=== PATIENT | female | born 2000 | race Caucasian/White ===

== ENCOUNTER 2020-05-04 06:41 | Emergency (ER) | payer BC ==
[~2020-05-04] VITALS: Ht 160 cm; Wt 127.0 kg
[2020-05-04 07:09] LABS: BASOPHILS % 0.3 % (0.0-1.0); EOSINOPHILS # (AUTO) 0.1 (0.0-0.4); EOSINOPHILS % 0.8 % (0.0-6.0); HEMATOCRIT 39.6 % (34.2-44.1); HEMOGLOBIN 12.7 g/dL (12.0-16.0); LYMPHOCYTES % 34.3 % (18.0-39.1); MEAN CORPUSCULAR HEMOGLOBIN 27.1 pg (28-32); MEAN CORPUSCULAR HGB CONC 32.1 g/dL (31-35); MEAN CORPUSCULAR VOLUME 84.4 fL (81-99); MONOCYTES # (AUTO) 0.6 (0.2-0.8); MONOCYTES % 4.8 % (4.4-11.3); NEUTROPHILS % 59.5 % (38.7-80.0); PLATELET COUNT 305 x10e3/uL (140-360); RED BLOOD COUNT 4.69 x10e6/uL (3.6-5.1)
[2020-05-04 07:16] LABS: CLARITY,URINE CLEAR (CLEAR); COLOR,URINE YELLOW (YELLOW)
--- NOTE | 2020-05-04 07:16 | Emergency Department Note ---
History of Present Illnes History of Present Illness Chief Complaint: Abdominal Complaints History of Present Illness This is a 19 year old female PATIENT IN FROM HOME WITH COMPLAINTS OF LOWER ABDOMINAL PAIN X 4 DAYS; STATES SHE INITIALLY HAD BURNING WITH URINATION, BUT NOW JUST HAS URINARY FREQUENCY. PATIENT ALERT AND ORIENTED, RESP EVEN AND NONLABORED, APPEARS IN NO DISTRESS, RATES PAIN 8/10. Historian: Patient Arrival Mode: Car Director Utilization Management Required: No Onset (how long ago): day(s) (4) Location: LOWER ABD Quality: CRAMPY PAIN Radiation: Reports non-radiation, Reports other (ALSO C/O LOWER ABD PAIN) Severity: mild Onset quality: gradual Timing of current episode: intermittent Progression: worsening Chronicity: new Context: Denies recent illness Relieving factors: none Exacerbating factors: none Associated symptoms: Reports denies other symptoms Past Medical/Family History Physician Review I have reviewed the patient's past medical and family history. Any updates have been documented here. Past Medical History Recent Fever: No Clinical Suspicion of Infectio: No New/Unexplained Change in Ment: No Past Medical History: Asthma Past Surgical History: None Social History Smoking Cessation: Never Smoker Counseling Performed: No Alcohol Use: Occasional Any Illegal Drug Use: No TB Exposure/Symptoms: No Physically hurt or threatened: No Family History Family history of heart diseas: No Other Any Pre-Existing Lines (PICC,: No Review of Systems Review of Systems Constitutional: Reports no symptoms EENTM: Reports no symptoms Cardiovascular: Reports no symptoms Respiratory: Reports no symptoms Gastrointestinal: Reports as per HPI, Reports abdominal pain Genitourinary: Reports no symptoms Musculoskeletal: Reports no symptoms Integumentary: Reports no symptoms Neurological: Reports no symptoms Psychological: Reports no symptoms Endocrine: Reports no symptoms Hematological/Lymphatic: Reports no symptoms Physical Exam Related Data Allergies: Coded Allergies: No Known Allergies (Unverified , 05/04/20) Triage Vital Signs Vital Signs Date Time Temp Pulse Resp B/P (MAP) Pulse Ox O2 Delivery O2 Flow Rate FiO2 05/04/20 06:45 97.8 96 20 145/83 100 Room Air Vital signs reviewed: Yes Physical Exam CONSTITUTIONAL Constitutional: Present well-developed, Present well-nourished, Present obese HENT HENT: Present normocephalic, Present atraumatic, Present oropharynx clear/moist, Present nose normal HENT L/R: Present left ext ear normal, Present right ext ear normal EYES Eyes: Reports PERRL, Reports conjunctivae normal NECK Neck: Present ROM normal PULMONARY Pulmonary: Present effort normal, Present breath sounds normal CARDIOVASCULAR Cardiovascular: Present regular rhythm, Present heart sounds normal, Present capillary refill normal, Present normal rate GASTROINTESTINAL Abdominal: Present soft, Present tender (MILD SUPRAPUBIC/LLQ/RLQ TENDERNESS, NO R/G); Absent guarding, Absent rebound, Absent left CVA tenderness, Absent right CVA tenderness GENITOURINARY Genitourinary: Present exam deferred SKIN Skin: Present warm, Present dry MUSCULOSKELETAL Musculoskeletal: Present ROM normal NEUROLOGICAL Neurological: Present alert, Present oriented x 3, Present no gross motor or sensory deficits PSYCHOLOGICAL Psychological: Present mood/affect normal, Present judgement normal Results Laboratory Laboratory Laboratory Tests Test 05/04/20 06:52 White Blood Count 11.77 x10e3/uL (4.8-10.8) Red Blood Count 4.69 x10e6/uL (3.6-5.1) Hemoglobin 12.7 g/dL (12.0-16.0) Hematocrit 39.6 % (34.2-44.1) Mean Corpuscular Volume 84.4 fL (81-99) Mean Corpuscular Hemoglobin 27.1 pg (28-32) Mean Corpuscular Hemoglobin Concent 32.1 g/dL (31-35) Red Cell Distribution Width 14.0 % (11.7-14.4) Platelet Count 305 x10e3/uL (140-360) Neutrophils (%) (Auto) 59.5 % (38.7-80.0) Lymphocytes (%) (Auto) 34.3 % (18.0-39.1) Monocytes (%) (Auto) 4.8 % (4.4-11.3) Eosinophils (%) (Auto) 0.8 % (0.0-6.0) Basophils (%) (Auto) 0.3 % (0.0-1.0) Neutrophils # (Auto) 7.0 (2.1-6.9) Lymphocytes # (Auto) 4.0 (1.0-3.2) Monocytes # (Auto) 0.6 (0.2-0.8) Eosinophils # (Auto) 0.1 (0.0-0.4) Basophils # (Auto) 0.0 (0.0-0.1) Absolute Immature Granulocyte (auto 0.04 x10e3/uL (0-0.1) Urine Color Yellow (YELLOW) Urine Clarity Clear (CLEAR) Urine pH 8.5 (5 - 7) Urine Specific [place] 1.025 (1.010-1.025) Urine Protein Negative (NEGATIVE) Urine Glucose (UA) Negative (NEGATIVE) Urine Ketones Negative (NEGATIVE) Urine Blood Trace (NEGATIVE) Urine Nitrite Negative (NEGATIVE) Urine Bilirubin Negative (NEGATIVE) Urine Urobilinogen 0.2 mg/dL (0.2 - 1) Urine Leukocyte Esterase Negative (NEGATIVE) Urine RBC 6-10 /HPF (0-5) Urine WBC 6-10 /HPF (0-5) Urine Epithelial Cells Few /LPF (NONE) Urine Bacteria Rare /HPF (NONE) Urine Test Negative (NEGATIVE) Sodium Level 136 mmol/L (136-145) Potassium Level 3.9 mmol/L (3.5-5.1) Chloride Level 105 mmol/L (98-107) Carbon Dioxide Level 24 mmol/L (22-29) Anion Gap 10.9 mmol/L (8-16) Blood Urea Nitrogen 10 mg/dL (7-26) Creatinine 0.74 mg/dL (0.57-1.11) Estimat Glomerular Filtration Rate > 60 ML/MIN (60-) BUN/Creatinine Ratio 14 (6-25) Glucose Level 84 mg/dL (74-118) Calcium Level 8.1 mg/dL (8.4-10.2) Total Bilirubin 0.2 mg/dL (0.2-1.2) Aspartate Amino Transf (AST/SGOT) 14 IU/L (5-34) Alanine Aminotransferase (ALT/SGPT) 20 IU/L (0-55) Alkaline Phosphatase 85 IU/L (40-150) Total Protein 7.3 g/dL (6.5-8.1) Albumin 3.5 g/dL (3.5-5.0) Globulin 3.8 g/dL (2.3-3.5) Albumin/Globulin Ratio 0.9 (0.8-2.0) Laboratory Tests Test 05/04/20 06:52 Lab results reviewed: Yes Imaging Imaging results reviewed: Yes Impressions EXAMINATION: CT of the abdomen and pelvis without contrast. TECHNIQUE: Spiral CT images of the abdomen and pelvis were performed from the lung bases to the lesser trochanters. No intravenous contrast was given per renal stone protocol. Coronal and sagittal reformatted images were obtained. COMPARISON: None. CLINICAL HISTORY:Flank pain, back pain, lower abdominal pain DISCUSSION: ABSENCE OF INTRAVENOUS CONTRAST DECREASES SENSITIVITY FOR DETECTION OF FOCAL LESIONS AND VASCULAR PATHOLOGY. ABDOMEN/PELVIS: LOWER THORAX: Lung bases are unremarkable. No pleural effusion. HEPATOBILIARY:No focal hepatic lesions. No intrahepatic biliary ductal dilation. The gallbladder is unremarkable. SPLEEN: No splenomegaly or focal splenic lesion. PANCREAS: No focal masses or ductal dilatation. ADRENALS: No adrenal nodules. KIDNEYS/URETERS: No hydronephrosis, calculi, or solid or cystic mass lesions. PELVIC ORGANS/BLADDER: The urinary bladder is incompletely distended but otherwise unremarkable. Uterus is anteflexed and appears normal. The left ovary is enlarged measuring 4 cm transverse x 3.2 cm AP x 3 cm craniocaudal (estimated volume approximately 19 cc). The right ovary is not discretely visualized. PERITONEUM/RETROPERITONEUM: Small amount of free pelvic fluid, average internal attenuation 10-15 Hounsfield units. LYMPH NODES: No pelvic sidewall, retroperitoneal, or mesenteric lymphadenopathy. VESSELS: Limited evaluation in the absence of intravenous contrast. The abdominal aorta is non-aneurysmal. GI TRACT: The large bowel shows no distension or wall thickening. Appendix is normal. No small bowel dilatation to suggest obstruction. BONES AND SOFT TISSUES: No osseous destructive lesions. No focal soft tissue abnormalities. IMPRESSION: Nonspecific enlargement of the left ovary, suboptimally evaluated in the absence of intravenous contrast and secondary to patient body habitus. In a patient of this age, this is likely due to benign cystic change, though ovarian torsion is an additional consideration in the setting of lower abdominal pain. Further evaluation with transabdominal and transvaginal pelvic sonography is suggested. No CT evidence of urolithiasis. Signed by: Dr. Eusebio Estrada M.D. on 05/04/2020 8:29 AM EXAM: Transabdominal and Transvaginal Pelvic Ultrasound INDICATION: ^LOWER ABD PAIN, R/O OVAR TORSION COMPARISON: CT abdomen and pelvis earlier 05/04/2020 TECHNIQUE: Grayscale transverse and sagittal transabdominal and transvaginal images were obtained of the pelvis. Transvaginal imaging was medically necessary to better evaluate the endometrium and the adnexa. CLINICAL HISTORY: 19 year old A0; last menstrual period: 02/25/2020. FINDINGS: Uterus Orientation: Normal Size: 8.7 x 4 x 5.6 cm, Normal Mass: None Cervix: Normal Endometrium: Thickness: 1.4 cm, Normal. Appearance: Homogeneous echotexture without focal thickening. Right ovary: Size: 3.5 x 1.9 x 2.1 cm Mass/Cyst: None Arterial and venous waveforms are identified within the right ovary by color Doppler and spectral waveform analysis. Left ovary: Size: 4 x 3.2 x 3.8 cm Mass/Cyst: 1.7 x 1.4 x 2.1 cm anechoic structure with posterior acoustic enhancement and no septation or solid component. Arterial and venous waveforms are identified within the left ovary by color Doppler and spectral waveform analysis. Adnexa: Normal Cul-de-sac: No free fluid IMPRESSION: Mild enlargement of the left ovary described on the comparison CT is shown to be secondary to a 2.1 cm simple cyst or dominant follicle. No sonographic evidence of ovarian torsion. Signed by: Dr. Eusebio Estrada M.D. on 05/04/2020 10:20 AM Assessment & Plan Medical Decision Making MDM LOWER ABD PAIN, LMP >2 MONTHS AGO NOT ON CONTROL - CHECK CBC, CHEM, UA/CX, PREG TEST - EVAL PREG, UTI, RENAL INSUFF, ELECTROLYTE ABNL. IF PREG NEG, WILL GET CT, IF POSITIVE WILL GET U/S Reassessment Reassessment CT shows enlargement of left ovary - will get pelvic U/S. US SHOWS SIMPLE CYST, NO OVARIAN TORSION DC HOME, TORADOL PO, F/U TRIM INSTALLER PCP Assessment & Plan Final Impression: (1) Abdominal pain (2) Ovarian cyst Depart Disposition: HOME, SELF-CARE Last Vital Signs Date Time Temp Pulse Resp B/P (MAP) Pulse Ox O2 Delivery O2 Flow Rate FiO2 05/04/20 07:06 100 17 143/90 100 Room Air 05/04/20 06:45 97.8 DANIELLE CHEN MD May 04, 2020 07:16
[2020-05-04 07:17] LABS: LEUKOCYTE ESTERASE ,URINE NEGATIVE (NEGATIVE); NITRITE,URINE NEGATIVE (NEGATIVE)
[2020-05-04 07:18] LABS: BACTERIA,URINE RARE /HPF; BILIRUBIN,URINE NEGATIVE (NEGATIVE); EPITHELIAL CELLS,URINE FEW /LPF; KETONES,URINE NEGATIVE (NEGATIVE); PROTEIN,URINE DIPSTICK NEGATIVE (NEGATIVE); URINE UROBILINOGEN 0.2 mg/dL (0.2 - 1)
[2020-05-04 07:19] LABS: PREGNANCY TEST, URINE NEGATIVE (NEGATIVE)
[2020-05-04] MEDS ORDERED: SODIUM CHLORIDE 0.9% 1000ML 1,000 ML IV STA (07:26)
[2020-05-04] MEDS ORDERED: DICYCLOMINE HCL 20 MG/2 ML VIAL IM ONE (07:30)
[2020-05-04] MEDS ORDERED: CEFTRIAXONE SOD 1 GM/NS 50 ML 50 ML IV ONE (07:30)
[2020-05-04 07:32] LABS: ALANINE AMINOTRANSFERASE 20 IU/L (0-55); ALBUMIN 3.5 g/dL (3.5-5.0); ALBUMIN/GLOBULIN RATIO 0.9 (0.8-2.0); ALKALINE PHOSPHATASE 85 IU/L (40-150); ANION GAP 10.9 mmol/L (8-16); BLOOD UREA NITROGEN 10 mg/dL (7-26); BUN/CREATININE RATIO 14 (6-25); CALCIUM 8.1 mg/dL (8.4-10.2); CARBON DIOXIDE 24 mmol/L (22-29); CHLORIDE 105 mmol/L (98-107); CREATININE, SERUM 0.74 mg/dL (0.57-1.11); EST GLOMERULAR FILTRATION RATE > 60 ML/MIN (60-); GLUCOSE 84 mg/dL (74-118); POTASSIUM 3.9 mmol/L (3.5-5.1); SODIUM 136 mmol/L (136-145)
--- OUTSIDE RECORDS SUMMARY | 2020-05-04 07:58 | XMS REPORT | Continuity of Care Document ---
Author Author [facility] t Organization [facility] Address [address] [place] [address] Phone Unavailable Care Team Providers Care Bundler Name Role Phone Kati Andersen Attphys [phone] Problems This patient has no known problems. Allergies, Adverse Reactions, Alerts This patient has no known allergies or adverse reactions. Medications This patient has no known medications. Procedures This patient has no known procedures. Encounters Start Date/Time End Date/Time Encounter Type Admission Type [facility] Care Department Encounter ID Source 2020-02-15 14:13:13 2020-02-15 15:26:14 Office Visit Radha Calzada [facility] [id number] Results This patient has no known results.
--- NOTE | 2020-05-04 08:32 | Diagnostic Imaging Report ---
EXAMINATION: CT of the abdomen and pelvis without contrast. TECHNIQUE: Spiral CT images of the abdomen and pelvis were performed from the lung bases to the lesser trochanters. No intravenous contrast was given per renal stone protocol. Coronal and sagittal reformatted images were obtained. COMPARISON: None. CLINICAL HISTORY:Flank pain, back pain, lower abdominal pain DISCUSSION: ABSENCE OF INTRAVENOUS CONTRAST DECREASES SENSITIVITY FOR DETECTION OF FOCAL LESIONS AND VASCULAR PATHOLOGY. ABDOMEN/PELVIS: LOWER THORAX: Lung bases are unremarkable. No pleural effusion. HEPATOBILIARY:No focal hepatic lesions. No intrahepatic biliary ductal dilation. The gallbladder is unremarkable. SPLEEN: No splenomegaly or focal splenic lesion. PANCREAS: No focal masses or ductal dilatation. ADRENALS: No adrenal nodules. KIDNEYS/URETERS: No hydronephrosis, calculi, or solid or cystic mass lesions. PELVIC ORGANS/BLADDER: The urinary bladder is incompletely distended but otherwise unremarkable. Uterus is anteflexed and appears normal. The left ovary is enlarged measuring 4 cm transverse x 3.2 cm AP x 3 cm craniocaudal (estimated volume approximately 19 cc). The right ovary is not discretely visualized. PERITONEUM/RETROPERITONEUM: Small amount of free pelvic fluid, average internal attenuation 10-15 Hounsfield units. LYMPH NODES: No pelvic sidewall, retroperitoneal, or mesenteric lymphadenopathy. VESSELS: Limited evaluation in the absence of intravenous contrast. The abdominal aorta is non-aneurysmal. GI TRACT: The large bowel shows no distension or wall thickening. Appendix is normal. No small bowel dilatation to suggest obstruction. BONES AND SOFT TISSUES: No osseous destructive lesions. No focal soft tissue abnormalities. IMPRESSION: Nonspecific enlargement of the left ovary, suboptimally evaluated in the absence of intravenous contrast and secondary to patient body habitus. In a patient of this age, this is likely due to benign cystic change, though ovarian torsion is an additional consideration in the setting of lower abdominal pain. Further evaluation with transabdominal and transvaginal pelvic sonography is suggested. No CT evidence of urolithiasis. Signed by: Dr. Eusebio Estrada M.D. on 05/04/2020 8:29 AM
--- NOTE | 2020-05-04 10:23 | Diagnostic Imaging Report ---
EXAM: Transabdominal and Transvaginal Pelvic Ultrasound INDICATION: ^LOWER ABD PAIN, R/O OVAR TORSION COMPARISON: CT abdomen and pelvis earlier 05/04/2020 TECHNIQUE: Grayscale transverse and sagittal transabdominal and transvaginal images were obtained of the pelvis. Transvaginal imaging was medically necessary to better evaluate the endometrium and the adnexa. CLINICAL HISTORY: 19 year old A0; last menstrual period: 02/25/2020. FINDINGS: Uterus Orientation: Normal Size: 8.7 x 4 x 5.6 cm, Normal Mass: None Cervix: Normal Endometrium: Thickness: 1.4 cm, Normal. Appearance: Homogeneous echotexture without focal thickening. Right ovary: Size: 3.5 x 1.9 x 2.1 cm Mass/Cyst: None Arterial and venous waveforms are identified within the right ovary by color Doppler and spectral waveform analysis. Left ovary: Size: 4 x 3.2 x 3.8 cm Mass/Cyst: 1.7 x 1.4 x 2.1 cm anechoic structure with posterior acoustic enhancement and no septation or solid component. Arterial and venous waveforms are identified within the left ovary by color Doppler and spectral waveform analysis. Adnexa: Normal Cul-de-sac: No free fluid IMPRESSION: Mild enlargement of the left ovary described on the comparison CT is shown to be secondary to a 2.1 cm simple cyst or dominant follicle. No sonographic evidence of ovarian torsion. Signed by: Dr. Eusebio Estrada M.D. on 05/04/2020 10:20 AM
[2020-05-04 11:32] VITALS: BP 117/72
== END 2020-05-04 11:34 | disposition home or self-care (01) ==
LOC: ER 07:19
DX: R10.30 Lower abdominal pain, unspecified (principal); N83.202 Unspecified ovarian cyst, left side; J45.909 Unspecified asthma, uncomplicated
CPT/HCPCS: 36415; 74176; 76856; 80053; 81001; 81025; 85025; 87086; 93976; 99283; J0500; J0696; J7030

== ENCOUNTER 2020-06-11 12:47 | Emergency (ER) | payer BC, OTHER ==
[~2020-06-11] VITALS: Ht 160 cm; Wt 127.0 kg
[2020-06-11 13:40] LABS: BASOPHILS % 0.3 % (0.0-1.0); EOSINOPHILS # (AUTO) 0.1 (0.0-0.4); EOSINOPHILS % 0.5 % (0.0-6.0); HEMATOCRIT 40.1 % (34.2-44.1); HEMOGLOBIN 13.1 g/dL (12.0-16.0); LYMPHOCYTES # (AUTO) 1.6 (1.0-3.2); LYMPHOCYTES % 14.7 % (18.0-39.1); MEAN CORPUSCULAR HEMOGLOBIN 28.2 pg (28-32); MEAN CORPUSCULAR HGB CONC 32.7 g/dL (31-35); MEAN CORPUSCULAR VOLUME 86.2 fL (81-99); MONOCYTES # (AUTO) 0.3 (0.2-0.8); MONOCYTES % 2.4 % (4.4-11.3); NEUTROPHILS % 81.8 % (38.7-80.0); PLATELET COUNT 279 x10e3/uL (140-360); RED BLOOD COUNT 4.65 x10e6/uL (3.6-5.1); RED CELL DISTRIBUTION WIDTH 13.7 % (11.7-14.4)
[2020-06-11 15:36] LABS: ALANINE AMINOTRANSFERASE 16 IU/L (0-55); ALBUMIN 3.3 g/dL (3.5-5.0); ALBUMIN/GLOBULIN RATIO 0.9 (0.8-2.0); ALKALINE PHOSPHATASE 76 IU/L (40-150); ANION GAP 9.9 mmol/L (8-16); BLOOD UREA NITROGEN 7 mg/dL (7-26); BUN/CREATININE RATIO 11 (6-25); CALCIUM 8.8 mg/dL (8.4-10.2); CARBON DIOXIDE 21 mmol/L (22-29); CHLORIDE 109 mmol/L (98-107); CREATININE, SERUM 0.63 mg/dL (0.57-1.11); EST GLOMERULAR FILTRATION RATE > 60 ML/MIN (60-); GLUCOSE 129 mg/dL (74-118); POTASSIUM 3.9 mmol/L (3.5-5.1); SODIUM 136 mmol/L (136-145)
[2020-06-11 15:45] LABS: HCG,QUANTITATIVE 2386.18 mIU/mL (0-10)
[2020-06-11 15:53] LABS: INR 0.95; PROTHROMBIN TIME 13.2 seconds (11.9-14.5)
[2020-06-11 15:54] LABS: PARTIAL THROMBOPLASTIN TIME 32.6 seconds (23.8-35.5)
[2020-06-11] MEDS ORDERED: HYDROCODONE/APAP 7.5MG-325MG 1 EA TAB PO NR (17:30)
[2020-06-11 18:11] VITALS: BP 151/94
== END 2020-06-11 18:33 | disposition home or self-care (01) ==
LOC: ER 12:53
DX: O03.9 Complete or unspecified spontaneous abortion without complication (principal)
CPT/HCPCS: 36415; 76817; 80053; 84702; 85025; 85610; 85730; 86900; 99284

== ENCOUNTER 2020-06-26 23:08 | Emergency (ER) | payer BC, OTHER ==
[~2020-06-26] VITALS: Ht 160 cm; Wt 127.0 kg
== END 2020-06-27 00:44 | disposition home or self-care (01) ==
LOC: ER 23:15
DX: R20.0 Anesthesia of skin (principal); R20.2 Paresthesia of skin; J45.909 Unspecified asthma, uncomplicated
CPT/HCPCS: 70450; 99283

== ENCOUNTER 2021-04-05 03:21 | Emergency (ER) | payer BC, OTHER ==
[~2021-04-05] VITALS: Ht 160 cm; Wt 127.0 kg
[2021-04-05 03:48] LABS: BASOPHILS # (AUTO) 0.1 (0.0-0.1); BASOPHILS % 0.5 % (0.0-1.0); EOSINOPHILS # (AUTO) 0.2 (0.0-0.4); EOSINOPHILS % 1.4 % (0.0-6.0); HEMATOCRIT 42.4 % (34.2-44.1); HEMOGLOBIN 13.9 g/dL (12.0-16.0); LYMPHOCYTES # (AUTO) 3.9 (1.0-3.2); LYMPHOCYTES % 32.8 % (18.0-39.1); MEAN CORPUSCULAR HEMOGLOBIN 28.1 pg (28-32); MEAN CORPUSCULAR HGB CONC 32.8 g/dL (31-35); MEAN CORPUSCULAR VOLUME 85.8 fL (81-99); MONOCYTES # (AUTO) 0.6 (0.2-0.8); MONOCYTES % 4.9 % (4.4-11.3); NEUTROPHILS # (AUTO) 7.2 (2.1-6.9); NEUTROPHILS % 60.1 % (38.7-80.0); PLATELET COUNT 278 x10e3/uL (140-360); RED BLOOD COUNT 4.94 x10e6/uL (3.6-5.1); RED CELL DISTRIBUTION WIDTH 13.1 % (11.7-14.4)
[2021-04-05 03:54] LABS: CLARITY,URINE SL CLOUDY (CLEAR); COLOR,URINE YELLOW (YELLOW); KETONES,URINE NEGATIVE (NEGATIVE); LEUKOCYTE ESTERASE ,URINE NEGATIVE (NEGATIVE); NITRITE,URINE NEGATIVE (NEGATIVE); PROTEIN,URINE DIPSTICK NEGATIVE (NEGATIVE); URINE UROBILINOGEN 0.2 mg/dL (0.2 - 1)
[2021-04-05 04:00] LABS: AMORPHOUS SEDIMENT,URINE MANY (FEW); BACTERIA,URINE FEW /HPF; EPITHELIAL CELLS,URINE RARE /LPF; WBC,URINE (MAN) 0-5 /HPF (0-5)
[2021-04-05 04:04] LABS: CALCIUM 9.6 mg/dL (8.4-10.2); CREATININE, SERUM 0.81 mg/dL (0.57-1.11)
[2021-04-05 04:59] VITALS: BP 142/97
== END 2021-04-05 05:30 | disposition home or self-care (01) ==
LOC: ER 04:32
DX: R51.9 Headache, unspecified (principal); R35.0 Frequency of micturition; J45.909 Unspecified asthma, uncomplicated
CPT/HCPCS: 36415; 70450; 80048; 81001; 84702; 85025; 99284

== ENCOUNTER 2021-08-06 22:20 | Emergency (ER) | payer BC, OTHER ==
[~2021-08-06] VITALS: Ht 160 cm; Wt 127.0 kg
[2021-08-06] MEDS ORDERED: IBUPROFEN600 MG PO (22:44)
[2021-08-06] MEDS ORDERED: ONDANSETRON ODT4 MG PO (22:44)
[2021-08-06] MEDS ORDERED: IBUPROFEN 400 MG TAB PO ONE (22:45)
[2021-08-06] MEDS ORDERED: ONDANSETRON HCL 4 MG ORAL DISINTEGRATING TAB PO ONE (22:45)
[2021-08-06] MEDS ORDERED: IBUPROFEN 400 MG TAB ONE (22:50)
[2021-08-06] MEDS ORDERED: ONDANSETRON HCL 4 MG ORAL DISINTEGRATING TAB ONE (22:50)
== END 2021-08-06 23:14 | disposition home or self-care (01) ==
LOC: ER 22:42
DX: B34.9 Viral infection, unspecified (principal); R50.9 Fever, unspecified; R11.0 Nausea; J45.909 Unspecified asthma, uncomplicated; F41.9 Anxiety disorder, unspecified
CPT/HCPCS: 93005; 99283; Q0162

== ENCOUNTER 2021-10-04 12:36 | Emergency (ER) | payer BC, OTHER ==
[~2021-10-04] VITALS: Ht 160 cm; Wt 127.0 kg
[~2021-10-04 12:36] MED LIST: IBUPROFEN600 MG PO; ONDANSETRON ODT4 MG PO
[2021-10-04] MEDS ORDERED: HYDROCODONE/APAP 5MG-325MG TAB PO PRN (13:15)
[2021-10-04 14:04] LABS: CLARITY,URINE CLEAR (CLEAR); COLOR,URINE YELLOW (YELLOW)
[2021-10-04 14:05] LABS: KETONES,URINE NEGATIVE (NEGATIVE); LEUKOCYTE ESTERASE ,URINE NEGATIVE (NEGATIVE); NITRITE,URINE NEGATIVE (NEGATIVE); PROTEIN,URINE DIPSTICK TRACE (NEGATIVE); URINE UROBILINOGEN 0.2 mg/dL (0.2 - 1)
[2021-10-04 14:20] LABS: WBC,URINE (MAN) 0-5 /HPF (0-5)
[2021-10-04] MEDS ORDERED: NAPROXEN SODIU550 MG PO (15:16)
[2021-10-04 15:35] VITALS: BP 133/80
== END 2021-10-04 15:37 | disposition home or self-care (01) ==
LOC: ER 13:22
DX: N94.6 Dysmenorrhea, unspecified (principal); J45.909 Unspecified asthma, uncomplicated; F41.9 Anxiety disorder, unspecified; F32.A Depression, unspecified
CPT/HCPCS: 76830; 76856; 81001; 81025; 99283

== ENCOUNTER 2022-08-14 17:15 | Emergency (ER) | payer OTHER, BC ==
[~2022-08-14] VITALS: Ht 160 cm; Wt 127.0 kg
[~2022-08-14 17:15] MED LIST changes: +NAPROXEN SODIU550 MG PO
[2022-08-14 18:26] LABS: BASOPHILS % 0.4 % (0.0-1.0); EOSINOPHILS # (AUTO) 0.2 (0.0-0.4); EOSINOPHILS % 1.4 % (0.0-6.0); HEMATOCRIT 46.9 % (34.2-44.1); HEMOGLOBIN 14.4 g/dL (12.0-16.0); LYMPHOCYTES # (AUTO) 3.3 (1.0-3.2); LYMPHOCYTES % 30.7 % (18.0-39.1); MEAN CORPUSCULAR HEMOGLOBIN 28.3 pg (28-32); MEAN CORPUSCULAR HGB CONC 30.7 g/dL (31-35); MEAN CORPUSCULAR VOLUME 92.1 fL (81-99); MONOCYTES # (AUTO) 0.6 (0.2-0.8); MONOCYTES % 5.3 % (4.4-11.3); NEUTROPHILS # (AUTO) 6.6 (2.1-6.9); PLATELET COUNT 293 x10e3/uL (140-360); RED BLOOD COUNT 5.09 x10e6/uL (3.6-5.1); RED CELL DISTRIBUTION WIDTH 12.7 % (11.7-14.4)
[2022-08-14 18:29] LABS: AMPHETAMINES SCREEN,URINE NEGATIVE (NEGATIVE); BENZODIAZEPINES SCREEN,URINE NEGATIVE (NEGATIVE); PHENCYCLIDINE SCREEN,URINE NEGATIVE (NEGATIVE)
[2022-08-14 18:40] LABS: ALBUMIN 4.2 g/dL (3.5-5.0); ANION GAP 16.8 mmol/L (8-16); CALCIUM 9.8 mg/dL (8.4-10.2); CREATININE, SERUM 0.75 mg/dL (0.57-1.11); POTASSIUM 3.8 mmol/L (3.5-5.1)
== END 2022-08-14 19:30 | disposition home or self-care (01) ==
LOC: ER 17:49
DX: R51.9 Headache, unspecified (principal); H53.8 Other visual disturbances; J45.909 Unspecified asthma, uncomplicated; F41.9 Anxiety disorder, unspecified; F32.A Depression, unspecified
CPT/HCPCS: 36415; 70450; 80053; 80307; 81025; 85025; 99284

== ENCOUNTER 2022-11-06 21:27 | Emergency (ER) | payer BC, OTHER ==
[~2022-11-06] VITALS: Ht 160 cm; Wt 127.0 kg
[2022-11-06] MEDS ORDERED: MEDROL4 M2 PO (23:45)
[2022-11-06] MEDS ORDERED: AMOX TR-K CLV1 EAC2 PO (23:45)
== END 2022-11-06 23:50 | disposition home or self-care (01) ==
LOC: ER 21:35
DX: R51.9 Headache, unspecified (principal); J32.9 Chronic sinusitis, unspecified; J45.909 Unspecified asthma, uncomplicated; F41.9 Anxiety disorder, unspecified; F32.A Depression, unspecified
CPT/HCPCS: 99282

== ENCOUNTER 2022-11-10 00:53 | Emergency (ER) | payer BC, OTHER ==
[~2022-11-10] VITALS: Ht 160 cm; Wt 127.0 kg
[~2022-11-10 00:53] MED LIST changes: +AMOX TR-K CLV1 EAC2 PO; +MEDROL4 M2 PO
[2022-11-10] MEDS ORDERED: HYDROXYZINE HCL25 MG PO (01:42)
== END 2022-11-10 01:50 | disposition home or self-care (01) ==
LOC: ER 01:01
DX: R06.02 Shortness of breath (principal); J45.909 Unspecified asthma, uncomplicated; F41.9 Anxiety disorder, unspecified; F32.A Depression, unspecified
CPT/HCPCS: 99282

== ENCOUNTER 2022-11-11 15:36 | Emergency (ER) | payer BC, OTHER ==
[~2022-11-11] VITALS: Ht 160 cm; Wt 127.0 kg
[~2022-11-11 15:36] MED LIST changes: +HYDROXYZINE HCL25 MG PO
== END 2022-11-11 17:06 | disposition home or self-care (01) ==
LOC: ER 15:39
DX: R20.0 Anesthesia of skin (principal); F41.9 Anxiety disorder, unspecified; F32.A Depression, unspecified; J45.909 Unspecified asthma, uncomplicated
CPT/HCPCS: 70450; 99283